=== PATIENT | male | born 2000 | race African-American/Black ===

== ENCOUNTER 2021-11-08 19:12 | Emergency (ER) | payer BC ==
[2021-11-08 20:01] VITALS: BMI 19.8
[2021-11-09 02:11] VITALS: BP 120/75; PULSE 52; TEMP 98.8
== END 2021-11-09 05:46 | disposition home or self-care (01) ==
LOC: JER 19:12
PROC: 3E0333Z Introduction of Anti-inflammatory into Peripheral Vein, Percutaneous Approach (ICD-10-PCS; principal; 2021-11-08)
DX: R10.11 Right upper quadrant pain (principal); K59.00 Constipation, unspecified
CPT/HCPCS: 36415; 76700-TC; 76870-TC; 80053; 81003; 85025; 85379; 93005; 93010; 99285-25; C9803; J0131; U0003; U0005

== ENCOUNTER 2025-01-13 16:47 | Emergency (ER) | payer SELFPAY ==
[2025-01-13 17:29] VITALS: RESP 16; BMI 19.5
[2025-01-13 20:00] LABS: BASO % 0.7 % (0-2.0); EOS % 1.2 % (0-4.5); HEMATOCRIT 41.5 % (35.4-49); HEMOGLOBIN 13.8 GM/dL (11.7-16.9); LYMPH % 32.3 % (8-40); MCH 28.9 pg (25.7-33.7); MCHC 33.2 g/dl (32.0-35.9); MEAN PLT VOLUME 8.2 fl (7.5-11.1); MONO % 9.9 % (3.8-10.2); NEUT % 55.9 % (42.8-82.8); PLATELET COUNT 208 10^3/uL (134-434); RBC 4.77 M/mm3 (4.00-5.60); RDW 12.5 % (11.9-15.9); WHITE BLOOD COUNT 4.3 K/mm3 (4.0-10.0)
[2025-01-13 20:23] LABS: POTASSIUM 3.7 mmol/L (3.5-5.1)
[2025-01-13 20:26] LABS: ALBUMIN 4.5 g/dl (3.4-5.0); BLOOD UREA NITROGEN 12.8 mg/dL (7-18); CALCIUM 9.3 mg/dL (8.5-10.1)
[2025-01-13 20:29] LABS: CREATININE 0.8 mg/dL (0.55-1.3)
[2025-01-13 20:31] LABS: BILIRUBIN,TOTAL 0.4 mg/dL (0.2-1); TOT PROT 7.4 g/dl (6.4-8.2)
[2025-01-13 21:08] LABS: PH,URINE 7.5 (5.0-8.0); URINE APPEARANCE CLEAR; URINE BILIRUBIN NEGATIVE (NEGATIVE); URINE COLOR YELLOW; URINE GLUCOSE (UA) NEGATIVE (NEGATIVE); URINE KETONE NEGATIVE (NEGATIVE); URINE LEUK ESTERASE NEGATIVE (NEGATIVE); URINE NITRITE NEGATIVE (NEGATIVE); URINE PROTEIN NEGATIVE (NEGATIVE); URINE UROBILINOGEN 0.2 mg/dL (0.2-1.0)
[2025-01-13 23:15] LABS: HIV INTERPRETATION NEGATIVE (NEGATIVE)
[2025-01-14] MEDS ORDERED: ACETAMINOPHEN 325 MG TABLET (FP) PO ONE (00:07)
[2025-01-14] MEDS ORDERED: ACETAMINOPHEN 500 MG TABLET (FP) PO ONE (00:07)
[2025-01-14] MEDS ORDERED: ACETAMINOPHEN 325 MG TABLET (FP) ONE (00:16)
[2025-01-14 00:30] VITALS: BP 126/78; PULSE 78; TEMP 98.1
== END 2025-01-14 00:27 | disposition home or self-care (01) ==
LOC: JER 16:47
DX: R10.11 Right upper quadrant pain (principal); R10.31 Right lower quadrant pain
CPT/HCPCS: 36415; 76705-TC; 76870-TC; 80053; 81003; 83690; 85025; 86803; 87086; 87389; 99284-25